=== PATIENT | male | born 1995 | race Caucasian/White ===

== ENCOUNTER 2021-01-09 15:55 | Emergency (ER) | payer OTHER ==
[2021-01-09] MEDS ORDERED: NAPROSYN500 MG PO (18:33)
== END 2021-01-09 18:45 | disposition home or self-care (01) ==
LOC: ER1 15:55
DX: S83.92XA Sprain of unspecified site of left knee, initial encounter (principal); X50.1XXA Overexertion from prolonged static or awkward postures, initial encounter; Y92.009 Unspecified place in unspecified non-institutional (private) residence as the place of occurrence of the external cause
CPT/HCPCS: 73562; 73590; 73610; 99283

== ENCOUNTER → 2021-03-25 | Outpatient (CLI) | payer OTHER ==
[~2021-03-25] MED LIST: NAPROSYN500 MG PO
== END ==
LOC: EMI 15:00
DX: S83.222A Peripheral tear of medial meniscus, current injury, left knee, initial encounter (principal); S83.412A Sprain of medial collateral ligament of left knee, initial encounter
CPT/HCPCS: 73721